=== PATIENT | female | born 1950 | race Asian ===

== ENCOUNTER 2018-08-26 19:47 | Emergency (ER) | payer MEDICARE, SELFPAY ==
[2018-08-26 19:59] VITALS: BP 136/77; PULSE 83; RESP 15; TEMP 36.4; O2SAT 100; BMI 23.2
--- NOTE | 2018-08-26 20:10 | ED.GENADULT ---
HPI - General Adult General Chief complaint: Skin/Abscess/Foreign Body Stated complaint: SWALLOWED CROWN AND POST Time Seen by Provider: 08/26/18 20:09 Source: patient Mode of arrival: ambulatory Limitations: no limitations History of Present Illness HPI narrative: 68-year-old female here for evaluation because she states that while she was eating she swallowed a temporary crown and post from her right lower jaw. She has no problems breathing. No vomiting. Does feel like something is stuck in her throat. Is tolerating her secretions. Related Data Allergies Allergy/AdvReac Type Severity Reaction Status Date / Time fluticasone AdvReac Verified 08/26/18 19:59 [From Advair Diskus] salmeterol AdvReac Verified 08/26/18 19:59 [From Advair Diskus] Review of Systems ENT Ears, Nose, Mouth, and Throat: Denies bleeding gums, Denies change in voice, Denies dental pain, Denies dry mouth and Reports sore throat Cardiovascular Denies dyspnea Respiratory Denies dyspnea Gastrointestinal Gastrointestinal: Denies abdominal pain PFSH Medical History Healthy adult (Acute) Surgical History History of third molar tooth extraction Status post surgery (03/17/14) Social History Smoking Status: Never smoker Exam Initial Vital Signs Initial Vital Signs: Vital Signs Temperature 97.6 F 08/26/18 19:59 Pulse Rate 83 08/26/18 19:59 Respiratory Rate 15 08/26/18 19:59 Blood Pressure 136/77 08/26/18 19:59 Pulse Oximetry 100 08/26/18 19:59 Const General: cooperative, healthy appearing, comfortable, well developed, well groomed and No acute distress Orientation: alert, awake and oriented x3 HENMT Head: normal to inspection and normocephalic Nose: external nose normal Mouth: oral mucosae normal Throat: posterior oropharynx normal Resp Effort & Inspection: normal respiratory effort, able to speak in complete sentences, no audible wheezes, no cough, not labored, no pursed lip breathing and not tachypneic Auscultation: clear to auscultation bilaterally Skin Lesions: no lesions Rashes: no rashes Neuro General: alert, awake and oriented x3 Extrem General: normal to inspection and capillary refill normal Psych Appearance: grossly normal and well kempt Course Orders Ordered: ED Orders 08/26/18 20:10 XR chest 1V Stat 08/26/18 20:19 XR abdomen 1V Stat XR soft tissue neck Stat Vital Signs - 8 hr 08/26/18 19:59 Temperature 97.6 F Pulse Rate 83 Respiratory Rate 15 Blood Pressure 136/77 Pulse Oximetry 100 Medical Decision Making Imaging Data Chest x-ray: Radiologist's impression: [address] [address] XRay Report Signed Patient: Kandice Judge LMR#: [id number] : 9Acct:[id number] Age/Sex: 68 / FDate of Service: 08/26/18 Loc: ED Accession Number: [id number] Procedure: XR chest 1V Ordering Provider: Benjamin Ho D.O. PROCEDURE: XR CHEST 1V INDICATIONS: Ingested foreign body TECHNIQUE: One view of the chest was acquired. COMPARISON: None. FINDINGS: Surgical changes and devices: None. Lungs and pleura: No pleural effusions or pneumothorax. Lungs are clear. Mediastinum: Mediastinal contours appear normal. Heart size is normal. Bones and chest wall: No suspicious bony lesions. Overlying soft tissues appear unremarkable. IMPRESSION: No acute process. Dictated by: Flynn Wray M.D. on 08/26/2018 at 20:32 Approved by: Flynn Wray M.D. on 08/26/2018 at 20:32 Abdominal x-ray: Radiologist's impression: [address] [address] XRay Report Signed Patient: Kandice Judge LMR#: [id number] : 9Acct:[id number] Age/Sex: 68 / FDate of Service: 08/26/18 Loc: ED Accession Number: [id number] Procedure: XR abdomen 1V Ordering Provider: Benjamin Ho D.O. PROCEDURE: XR ABDOMEN 1V INDICATIONS: Ingested foreign body TECHNIQUE: One view of the abdomen acquired. COMPARISON: [facility], CT, ABDOMEN/PELVIS WITH CONTRAST, 01/02/2015, 9:20. FINDINGS: Surgical changes and devices: A 9 mm diameter radiodensity projects over the left L4 vertebral body, compatible with an orally ingested dental amalgam. Bowel: Bowel gas pattern is normal. Soft tissues: No suspicious abdominal calcifications. Visualized solid organ contours appear normal in size. Bones: No suspicious bony lesions. IMPRESSION: Orally ingested object projecting over the lower abdomen as described above. No evidence of bowel obstruction. Dictated by: Flynn Wray M.D. on 08/26/2018 at 20:37 Approved by: Flynn Wray M.D. on 08/26/2018 at 20:38 X-ray soft tissue neck: Radiologist's impression: PROCEDURE: XR SOFT TISSUE NECK INDICATIONS: Ingested foreign body TECHNIQUE: 2 views of the neck were acquired. COMPARISON: None. FINDINGS: Airway: The airway appears patent. Soft tissues: Prevertebral soft tissues are normal in thickness. The epiglottis and aryepiglottic folds appear normal. No soft tissue gas. Bones: No suspicious bony lesions. Visualized cervical spine is normally aligned. IMPRESSION: No radiopaque foreign body. Dictated by: Flynn Wray M.D. on 08/26/2018 at 20:38 Approved by: Flynn Wray M.D. on 08/26/2018 at 20:38 MDM Narrative Medical decision making narrative: Patient not in respiratory distress. X-rays showed appears to be the tooth in the abdomen. Low suspicion for aspiration. Discussed this with the patient. She was given return precautions. She expressed understanding and agreement plan. Discharge Plan Departure Patient Disposition: Home Clinical Impression: Foreign body ingestion Discharge Date/Time: 08/26/18 20:58 Interventions: ED Discharge Assessment Last Done: 08/26/18 20:57 Instructions: DI for Foreign Body, Swallowed-Adult Activity Restrictions/Additional Instructions: Call your primary care doctor for a follow-up to discuss further imaging if indicated. The tube should progress through your intestines without any problems. Return to the emergency department with any fevers, abdominal pain, problems breathing, or any other concerning symptoms.
--- NOTE | 2018-08-26 20:19 | DI.RAD.S_ITS ---
PROCEDURE: XR SOFT TISSUE NECK INDICATIONS: Ingested foreign body TECHNIQUE: 2 views of the neck were acquired. COMPARISON: None. FINDINGS: Airway: The airway appears patent. Soft tissues: Prevertebral soft tissues are normal in thickness. The epiglottis and aryepiglottic folds appear normal. No soft tissue gas. Bones: No suspicious bony lesions. Visualized cervical spine is normally aligned. IMPRESSION: No radiopaque foreign body. Dictated by: Flynn Wray M.D. on 08/26/2018 at 20:38 Approved by: Flynn Wray M.D. on 08/26/2018 at 20:38
--- NOTE | 2018-08-26 20:19 | DI.RAD.S_ITS ---
PROCEDURE: XR ABDOMEN 1V INDICATIONS: Ingested foreign body TECHNIQUE: One view of the abdomen acquired. COMPARISON: [facility], CT, ABDOMEN/PELVIS WITH CONTRAST, 01/02/2015, 9:20. FINDINGS: Surgical changes and devices: A 9 mm diameter radiodensity projects over the left L4 vertebral body, compatible with an orally ingested dental amalgam. Bowel: Bowel gas pattern is normal. Soft tissues: No suspicious abdominal calcifications. Visualized solid organ contours appear normal in size. Bones: No suspicious bony lesions. IMPRESSION: Orally ingested object projecting over the lower abdomen as described above. No evidence of bowel obstruction. Dictated by: Flynn Wray M.D. on 08/26/2018 at 20:37 Approved by: Flynn Wray M.D. on 08/26/2018 at 20:38
== END 2018-08-26 20:58 | disposition home or self-care (01) ==
PROVIDERS: Emergency Provider Emergency Medicine; Family Provider Internal Medicine; PCP Internal Medicine
DX: T18.9XXA Foreign body of alimentary tract, part unspecified, initial encounter (principal)
CPT/HCPCS: 70360; 71045; 74018; 99282; 99283

== ENCOUNTER → 2018-09-10 12:56 | Outpatient (CLI) | payer MEDICARE, SELFPAY ==
[2018-09-10 13:41] LABS: BUN Creatinine Ratio 26.7 (6-22); Blood Urea Nitrogen 16 mg/dL (7-17); Estimated Glomerular Filt Rate > 60.0 mL/min (>60)
== END ==
PROVIDERS: PCP Internal Medicine; Visit Provider Internal Medicine
DX: R10.12 Left upper quadrant pain (principal)
CPT/HCPCS: 36415; 82565; 84520

== ENCOUNTER → 2018-09-15 08:44 | Outpatient (CLI) | payer MEDICARE, SELFPAY ==
--- NOTE | 2018-09-15 | DI.CT.S_ITS ---
PROCEDURE: CT ABDOMEN PELVIS W CON INDICATIONS: LEFT UPPER QUADRANT PAIN TECHNIQUE: After the administration of oral and intravenous contrast, 5 mm thick sections acquired from the diaphragms to the symphysis. 5 mm thick coronal and sagittal reformats were performed. For radiation dose reduction, the following was used: automated exposure control, adjustment of mA and/or kV according to patient size. COMPARISON: [facility], CT, ABDOMEN/PELVIS WITH CONTRAST, 01/02/2015, 9:20. FINDINGS: Image quality: Excellent. ABDOMEN: Lung bases: Lung bases are clear. Heart size is normal. Solid organs: Liver is normal in size and enhancement. Multiple low-density cystic lesions are present throughout the liver overall similar in size and appearance to the study dated 01/02/15 suggesting the presence of multiple hepatic cysts. Subcentimeter calcified stones are present within the gallbladder fundus. No gallbladder wall thickening or pericholecystic fluid. Biliary system is non-dilated. Pancreas enhances normally. Spleen is normal in size and enhancement. No adrenal nodules. Kidneys are normal in size and enhancement, without hydronephrosis. There is a small upper pole left renal cyst. Peritoneum and bowel: Stomach, small bowel, and colon loops are normal in caliber and wall thickness. The appendix is likely visualized and appears thin-walled. No free fluid or air. Nodes and vessels: No retroperitoneal or mesenteric adenopathy. Aorta and inferior vena cava are normal in caliber. Scattered atheromatous calcifications are present throughout the abdominal aorta. Miscellaneous: No ventral hernias. PELVIS: Genitourinary: Bladder wall thickness is normal. Miscellaneous: No inguinal hernias or adenopathy. Bones: No suspicious bony lesions. No vertebral body compression fractures. IMPRESSION: 1. No acute intra-abdominal findings. 2. No findings to explain left upper quadrant pain. Dictated by: Ariella Koroma M.D. on 09/15/2018 at 12:09 Approved by: Ariella Koroma M.D. on 09/15/2018 at 12:14
== END ==
PROVIDERS: Family Provider Internal Medicine; PCP Internal Medicine; Visit Provider Physician Assistant
DX: R10.12 Left upper quadrant pain (principal); N28.1 Cyst of kidney, acquired; I70.0 Atherosclerosis of aorta
CPT/HCPCS: 74177; Q9967

== ENCOUNTER → 2019-02-10 09:05 | Outpatient (CLI) | payer MEDICARE, SELFPAY ==
--- NOTE | 2019-02-10 | DI.MG.S_ITS ---
BILATERAL DIGITAL SCREENING MAMMOGRAM 3D/2D WITH CAD: 02/10/2019 CLINICAL: Routine screening. Family history of breast cancer. Comparison is made to exams dated: 02/03/2018 mammogram, 01/30/2017 mammogram, and 01/14/2016 mammogram - [facility]. The tissue of both breasts is heterogeneously dense. This may lower the sensitivity of mammography. Current study was also evaluated with a Computer Aided Detection (CAD) system. No significant masses, calcifications, or other findings are seen in either breast. There has been no significant interval change. IMPRESSION: NEGATIVE There is no mammographic evidence of malignancy. A 1 year screening mammogram is recommended. This exam was interpreted at Station ID: [id number]. NOTE: For mammograms, a report in lay terms will be sent to the patient. Approximately 15% of breast malignancies will not be visualized mammographically. In the management of a palpable breast mass, a negative mammogram must not discourage biopsy of a clinically suspicious lesion. Electronically Signed By: Lucas abbott/urmila:02/10/2019 13:10:56 letter sent: Normal Exam ACR BI-RADS Category 1: Negative [id number]
== END ==
PROVIDERS: Family Provider Internal Medicine; PCP Internal Medicine; Visit Provider Internal Medicine
DX: Z12.31 Encounter for screening mammogram for malignant neoplasm of breast (principal); Z80.3 Family history of malignant neoplasm of breast
CPT/HCPCS: 77063; 77067

== ENCOUNTER → 2019-03-31 09:49 | Outpatient (CLI) | payer MEDICARE, SELFPAY | PROVIDERS: PCP Internal Medicine; Visit Provider Internal Medicine | DX: M85.852 Other specified disorders of bone density and structure, left thigh (principal); Z78.0 Asymptomatic menopausal state | CPT/HCPCS: 77080 ==

== ENCOUNTER → 2020-05-03 11:08 | Outpatient (CLI) | payer MEDICARE, SELFPAY ==
[2020-05-03 11:47] LABS: Add Manual Diff / Slide Review NO; Basophils Absolute Auto 100 /uL (0-100); Eosinophils Absolute Auto 100 /uL (0-450); Hemoglobin 13.4 g/dL (12.0-16.0); Lymphocytes Absolute Auto 2000 /uL (1100-4500); Lymphocytes Percent Auto 39.9 % (25-40); Mean Corpuscular HGB Conc 33.5 % (30-36); Mean Corpuscular Hemoglobin 31.7 PG (26-34); Mean Corpuscular Volume 94.6 fL (80-100); Monocytes Absolute Auto 300 /uL (0-900); Monocytes Percent Auto 5.4 % (3-14); Neutrophils Absolute Auto 2500 /uL (1500-7000); Neutrophils Percent Auto 50.7 % (50-75); Platelet Count 164 X10^3/uL (150-400); Red Blood Cell Count 4.23 X10^6/uL (4.0-5.2); Red Cell Distribution Width 13.5 % (11.6-14.8)
[2020-05-03 12:27] LABS: Alanine Aminotransferase 45 IU/L (<35); Albumin 4.6 g/dL (3.5-5.0); Albumin Globulin Ratio 1.4 (1.0-2.8); Alkaline Phosphatase 89 U/L (38-126); Aspartate Aminotransferase 38 IU/L (14-36); BUN Creatinine Ratio 21.7 (6-22); Bilirubin Total 0.9 mg/dL (0.2-1.3); Blood Urea Nitrogen 13 mg/dL (7-17); Calcium 10.1 mg/dL (8.4-10.2); Carbon Dioxide 29 mmol/L (22-32); Chloride 108 mmol/L (98-107); Cholesterol 126 mg/dL (140-199); Estimated Glomerular Filt Rate > 60.0 mL/min (>60); Globulin 3.2 g/dL (1.7-4.1); Glucose 107 mg/dL (80-110); HDL Cholesterol 44 mg/dL (40-60); HEMOLYSIS < 15 (0-50); LDL Cholesterol Calculated 51 mg/dL (<100); Potassium 3.8 mmol/L (3.4-5.1); Sodium 142 mmol/L (137-145); Total Protein 7.8 g/dL (6.3-8.2); Triglycerides 157 mg/dL (35-150)
== END ==
PROVIDERS: PCP Internal Medicine; Referring Provider Internal Medicine; Visit Provider Internal Medicine
DX: M48.02 Spinal stenosis, cervical region (principal); I10 Essential (primary) hypertension; M81.0 Age-related osteoporosis without current pathological fracture; E78.2 Mixed hyperlipidemia
CPT/HCPCS: 36415; 80053; 80061; 85025

== ENCOUNTER → 2020-05-11 12:35 | Outpatient (CLI) | payer MEDICARE, SELFPAY ==
--- NOTE | 2020-05-11 12:38 | DI.MG.S_ITS ---
BILATERAL DIGITAL SCREENING MAMMOGRAM 3D/2D WITH CAD: 05/11/2020 CLINICAL: Routine screening. Comparison is made to exams dated: 02/10/2019 mammogram, 02/03/2018 mammogram, and 01/30/2017 mammogram - [facility]. The tissue of both breasts is heterogeneously dense. This may lower the sensitivity of mammography. Current study was also evaluated with a Computer Aided Detection (CAD) system. No significant masses, calcifications, or other findings are seen in either breast. There has been no significant interval change. IMPRESSION: NEGATIVE There is no mammographic evidence of malignancy. A 1 year screening mammogram is recommended. This exam was interpreted at Station ID: [id number]. NOTE: For mammograms, a report in lay terms will be sent to the patient. Approximately 15% of breast malignancies will not be visualized mammographically. In the management of a palpable breast mass, a negative mammogram must not discourage biopsy of a clinically suspicious lesion. Electronically Signed By: Nba bustillo/urmila:05/11/2020 13:33:21 letter sent: Normal Exam ACR BI-RADS Category 1: Negative [id number]
--- NOTE | 2020-05-11 12:39 | DI.US.S_ITS ---
PROCEDURE: US ABDOMEN LIMITED INDICATIONS: SCREENING ABNORMAL LEVELS OF OTHER SERUM ENZYMES TECHNIQUE: Real-time focused scanning was performed of the abdomen, with image documentation. COMPARISON: [facility], CT, CT ABDOMEN PELVIS W CON, 09/15/2018, 9:35. FINDINGS: Liver is diffusely increased in echogenicity. No focal hepatic abnormalities identified. Normal hepatic size. Multiple hepatic cysts redemonstrated as was seen on prior CT scan dated 09/15/2018. Single gallstone present involving the gallbladder neck and there is no gallbladder wall thickening or pericholecystic fluid. No biliary dilatation. Pancreas not visualized. IMPRESSION: 1. Increased hepatic echogenicity noted possibly related to hepatic steatosis but other sources of hepatocellular disease cannot be excluded. Recommend clinical correlation. 2. Cholelithiasis. Dictated by: Conor Mcmullen [facility] Interpreted: Jerad Hendricks MD on 05/11/2020 at 13:13 Approved by: Jerad Hendricks M.D. on 05/11/2020 at 14:46
== END ==
PROVIDERS: PCP Internal Medicine; Referring Provider Internal Medicine; Visit Provider Internal Medicine
DX: Z12.31 Encounter for screening mammogram for malignant neoplasm of breast (principal); R74.8 Abnormal levels of other serum enzymes; K80.20 Calculus of gallbladder without cholecystitis without obstruction
CPT/HCPCS: 76705; 77063; 77067

== ENCOUNTER → 2020-06-13 10:10 | Outpatient (CLI) | payer MEDICARE, SELFPAY ==
[2020-06-13 11:33] LABS: Add Manual Diff / Slide Review NO; Basophils Absolute Auto 0 /uL (0-100); Basophils Percent Auto 0.6 % (0-2); Eosinophils Absolute Auto 200 /uL (0-450); Eosinophils Percent Auto 2.7 % (2-4); Hematocrit 38.1 % (36-46); Hemoglobin 13.2 g/dL (12.0-16.0); Lymphocytes Absolute Auto 1400 /uL (1100-4500); Lymphocytes Percent Auto 24.1 % (25-40); Mean Corpuscular HGB Conc 34.7 % (30-36); Mean Corpuscular Hemoglobin 32.3 PG (26-34); Mean Corpuscular Volume 93.1 fL (80-100); Monocytes Absolute Auto 100 /uL (0-900); Monocytes Percent Auto 1.5 % (3-14); Neutrophils Absolute Auto 4200 /uL (1500-7000); Neutrophils Percent Auto 71.1 % (50-75); Platelet Count 154 X10^3/uL (150-400); Red Blood Cell Count 4.09 X10^6/uL (4.0-5.2); Red Cell Distribution Width 12.9 % (11.6-14.8); White Blood Cell Count 5.9 X10^3/uL (4.5-11.0)
[2020-06-13 11:46] LABS: Alanine Aminotransferase 40 IU/L (<35); Albumin 4.6 g/dL (3.5-5.0); Albumin Globulin Ratio 1.6 (1.0-2.8); Alkaline Phosphatase 84 U/L (38-126); Aspartate Aminotransferase 39 IU/L (14-36); BUN Creatinine Ratio 19.7 (6-22); Bilirubin Total 1.3 mg/dL (0.2-1.3); Bilirubin Unconjugated 1.1 mg/dL (0.0-1.1); Blood Urea Nitrogen 13 mg/dL (7-17); Calcium 9.3 mg/dL (8.4-10.2); Carbon Dioxide 25 mmol/L (22-32); Chloride 108 mmol/L (98-107); Cholesterol 117 mg/dL (140-199); Estimated Glomerular Filt Rate > 60.0 mL/min (>60); Globulin 2.9 g/dL (1.7-4.1); Glucose 100 mg/dL (80-110); HDL Cholesterol 44 mg/dL (40-60); HEMOLYSIS < 15 (0-50); LDL Cholesterol Calculated 54 mg/dL (<100); Potassium 3.8 mmol/L (3.4-5.1); Sodium 141 mmol/L (137-145); Total Protein 7.5 g/dL (6.3-8.2); Triglycerides 95 mg/dL (35-150)
[2020-06-13 12:45] LABS: Hep C Virus Ab w/Reflex Quant NEGATIVE s/c (NEGATIVE)
== END ==
PROVIDERS: PCP Internal Medicine; Referring Provider Internal Medicine; Visit Provider Internal Medicine
DX: M48.02 Spinal stenosis, cervical region (principal); M81.0 Age-related osteoporosis without current pathological fracture; I10 Essential (primary) hypertension; E78.2 Mixed hyperlipidemia; R74.8 Abnormal levels of other serum enzymes
CPT/HCPCS: 36415; 80053; 80061; 80076; 85025; 86803; 87522

== ENCOUNTER → 2020-07-06 09:09 | Outpatient (CLI) | payer MEDICARE, SELFPAY ==
[2020-07-08 18:26] LABS: COVID19 Sendout Not Detected (Not Detect)
== END ==
PROVIDERS: PCP Internal Medicine; Visit Provider Nurse Practitioner
DX: Z11.59 Encounter for screening for other viral diseases (principal)
CPT/HCPCS: 87635

== ENCOUNTER 2020-07-09 06:28 | Day surgery (SDC) | payer MEDICARE, SELFPAY ==
[2020-07-05 08:02] VITALS: BMI 24.8
[2020-07-09] VITALS (13 sets, daily range): BP systolic 102–136; BP diastolic 57–83; PULSE 68–77; RESP 10–20; TEMP 36.6–36.8; O2SAT 96–99; BMI 24.3
--- NOTE | 2020-07-09 | PATH_ITS ---
[facility] Accession Number: [id number] . 01 Material submitted: . PART A: gallbladder - GALLBLADDER PART B: liver - LIVER BIOPSY . 02 Diagnosis: A. Gallbladder, Cholecystectomy: Chronic cholecystitis with cholelithiasis. Adenomyomatous hyperplasia. Negative for dysplasia and malignancy. . B. Liver, Biopsy: 1. Mild macrovesicular steatosis (25%-30%). 2. Mild hepatocytic iron deposition (grade 1 of 4). 3. Biliary hamartoma/von Meyenburg complex; 4 mm. 4. No evidence of acute or chronic hepatitis. 5. No evidence of fibrosis. MRV 07/13/2020 1344 Local . 02 Electronically signed: . Jyoti Sim MD, Pathologist NPI- [id number] . 01 Gross description: . A. Received in formalin, labeled gallbladder and contents, and consists of a 6.0 x 2.8 x 2.0 cm previously disrupted gallbladder with a 0.1 cm in diameter cystic duct. The serosa is talamantes-pink and wrinkled. Opening reveals minimal green viscous bile with multiple black cholelith fragments measuring 0.8 x 0.7 x 0.3 cm in aggregate. The mucosa is talamantes-green and velvety with cholesterolosis. The wall thickness measures 0.1 cm and there is a 0.5 x 0.4 x 0.4 cm cyst within the fundus. [employer] sections are submitted, to include the en face cystic duct margin (blue), body and fundus. B. Received in formalin, labeled liver biopsy, and consists of a 3.0 x 1.3 x 1.0 cm portion of liver with a talamantes-pink smooth capsule. The margin is inked blue and the specimen is sectioned to reveal talamantes-pink glistening cut surfaces. There is a 0.1 x 0.1 x 0.1 cm cyst located 0.6 cm from the margin. The specimen is entirely submitted in cassettes B1-B3. (EA:[id number]) /MRV 07/10/2020 1041 Local . 02 Microscopic: . Part B) The liver biopsy consists of liver parenchyma showing preserved hepatic architecture as confirmed by trichrome stain. The portal tracts show no significant inflammatory infiltrates. There is no central lobular inflammation. Interlobular bile ducts are present in most of the portal tracts examined. The hepatic arteries and portal veins are unremarkable. The hepatic lobules show 25% to 30% of macrosteatosis. There is no evidence of ballooning degenration. No Deborah-Denk bodies are identified. There is no significant intrahepatocytic or intracanalicular cholestasis noted. There is no evidence of hepatocytic necrosis. There is mild hepatocytic iron deposition (grade 1 of 4) in hepatocytes, confirmed by iron stain. A PAS stain with diastase reveals no abnormal globules. The tissue within block B2 shows a focal area of bile ductular cystic changes most consistent with bile duct hamartoma/von Meyenburg complex. There is no proliferation of an abnormal cell population. . 02 Pathologist provided ICD-10: K81.1, K76.0 . 02 CPT . 159593, 309573, 041836, 941471, 040480 Performed at: 01 [facility] [address] [id number] MD Nba Ford MD Phone: [phone] Performed at: [address] [facility] [id number] MD Jyoti Sim MD Phone: [phone]
[2020-07-09] MEDS: LACTATED RINGERS 1,000 ML 42 ML IV ×2 (07:21→09:27)
[2020-07-09] MEDS: ACETAMINOPHEN 325 MG TABLET 975 MG PO (07:21)
[2020-07-09] MEDS: CEFAZOLIN 2 GM/100 ML FROZ.PIGGY IV (07:49)
--- NOTE | 2020-07-09 08:34 | SUR.OPER ---
Supine on padded OR bed, head on pillow, safety belt at thigh. Arms secured on padded arm board <90 degrees abduction. Legs uncrossed. Padded footboard in place. Tape over blanket to secure lower legs.
[2020-07-09] MEDS: BUPIVACAINE 0.5% (PF) VIAL 30 ML INJ (09:03)
--- NOTE | 2020-07-09 10:12 | SUR.PHASEI ---
Oral airway removed without difficulty. RR even and unlabored. VSS.
[2020-07-09] MEDS: ONDANSETRON 4 MG/2 ML INJ IV ×2 (10:14→10:23)
--- NOTE | 2020-07-09 10:24 | SUR.PHASEI ---
Patient continues to c/o nausea but no emesis. Repeat Zofran 4 mg IV given. Patient denies any pain at this time. Resting comfortably, VSS.
[2020-07-09] MEDS: HALOPERIDOL 5 MG/ML VIAL 1 MG IV (10:37)
--- NOTE | 2020-07-09 10:38 | SUR.PHASEII ---
Patient continues to c/o nausea. Haldol given.
--- NOTE | 2020-07-09 10:39 | PM.PREOP ---
Pre-operative Note COVID-19 COVID-19 status: Negative Result date/Date tested (Pos, Neg/Pending): 07/06/20 Interval Note History & Physical reviewed/Exam performed by Physician: Yes Changes to H&P: No
--- NOTE | 2020-07-09 10:42 | P.OP_ITS ---
Operative Date/Time/Diagnoses Date of procedure: 07/09/20 Time of procedure: 10:31 Pre-op diagnosis: Cholelithiasis cholecystitis Post-op diagnosis: same (Patient also had a cystic mass adjacent to the gallbladder and abnormal arterial supply. Please see details below.) Procedure & Clinicians Procedure: Laparoscopic cholecystectomy. Incidental repair of an umbilical hernia. Liver biopsy for indicated reasons at the time of operation. Same procedure as scheduled: Yes Indications: Symptomatic gallbladder disease with gallstones. Surgeon: Jackson Crystal Click Yes if Unassisted: Yes Anesthesia Type: General Operative Notes Findings: Cystic mass adjacent to the gallbladder in the right lobe of the liver. Fairly normal appearing gallbladder with stones. Arcing artery supplying the gallbladder with branches while returning to the liver in the right lobe. Yellow cast to the liver. Biopsy of the liver taken. Closure Type: primary Specimen(s): other (Gallbladder and liver tissue.) Prosthetic devices, grafts, tissues, transplants, or devices: None Estimated Blood Loss (mL): 5 Blood products transfused: none Procedure in detail: The patient was placed supine on the operating room table and underwent general endotracheal anesthesia. The patient was prepped and draped in the usual fashion. Local anesthetic was infiltrated near the umbilicus and curvilinear incision made and carried down through fascia into the peritoneal cavity. There was a small umbilical hernia and the fascial ring was cleared of tissue. Stay sutures of 0 Vicryl were placed in the fascia. A 12 mm port was placed. The abdomen was insufflated. The patient was repositioned. Local anesthetic was infiltrated in 3 areas under the right costal margin and 3D incisions made followed by placing 3 5 mm ports under direct laparoscopic camera vision internally. Immediately adjacent to the gallbladder to its right was a odd lobulated cystic appearing mass. It was clearly separate from the gallbladder and had a somewhat narrowed vase that contain both liver tissue and a wall of the cyst going into the liver. I decided to leave this alone for fear of resecting it and causing a bile leak. The gallbladder was grasped and elevated. Dissection was begun near its end. There was an obvious artery arcing onto the gallbladder but traveling the length of the gallbladder and going back into the liver in the right lobe. I dissected out will was clearly a very small cystic duct. It would not of admitted a cholangiocatheter. Three clips were placed across it was divided leaving 2 in the patient. I then dissec jorge the artery arcade off of the gallbladder and leaving it intact. Clips were placed as necessary for any branch that I was concerned might bleed. The gallbladder is dissected from its bed in the liver and released.. The gallbladder was then dissected from its bed in the liver using cautery. There was spillage of the fluid from the gallbladder but no stones evacuated. Ultimately the gallbladder was detached and removed through the umbilical port. the port sites were all irrigated. The stay sutures at the umbilicus were elevated. A 2 0 PDS suture was placed between them. The Vicryl and PDS sutures were then tied. The skin in all areas was closed with interrupted 4 0 Vicryl subcuticular stitches. Steri-Strips and Mastisol were applied. Band-Aids were placed and the patient was awakened, extubated and taken to the recovery area in good condition. Complications: none Post-operative Condition: stable Disposition: PACU
--- NOTE | 2020-07-09 10:55 | SUR.PHASEII ---
4108 Dr. Crystal spoke with the patient. Julio SINGER, aron resting on patient's chest. Plan: Reevaluate nausea as needed.
[2020-07-09] MEDS: PROCHLORPERAZINE 10 MG/2 ML VIAL IV (11:19)
--- NOTE | 2020-07-09 11:22 | SUR.PHASEII ---
1119 ambulated to the bathroom and voided, stable on feet. Continues to deny pain, nausea continues - medicated.
--- NOTE | 2020-07-09 12:05 | SUR.PHASEII ---
Report from Jackie to myself for lunch relief. Pt stable and wanting to try get dressed, states no longer nauseated. Up earlier to bathroom and voiding well, taking water in sips without problems. All dc instructions given and pt verbalizes understanding. at curbside in private vehicle. iv dcd site clear. Pt wanting to go home and sleep. Dcd in stable condition via wc by Erika with no c/o
== END 2020-07-09 12:05 | disposition home or self-care (01) ==
PROVIDERS: PCP Internal Medicine; Referring Provider Internal Medicine; Visit Provider Specialist
PROC: 0FT44ZZ Resection of Gallbladder, Percutaneous Endoscopic Approach (ICD-10-PCS; CPT 47562; principal; 2020-07-09 07:45)
DX: K80.10 Calculus of gallbladder with chronic cholecystitis without obstruction (principal); K42.9 Umbilical hernia without obstruction or gangrene; I10 Essential (primary) hypertension; E78.5 Hyperlipidemia, unspecified; K21.9 Gastro-esophageal reflux disease without esophagitis; K76.0 Fatty (change of) liver, not elsewhere classified
CPT/HCPCS: 47562; 47001; J0330; J0690; J0780; J1100; J1630; J2405; J2704; J3010

== ENCOUNTER → 2020-08-14 13:34 | Outpatient (CLI) | payer MEDICARE, SELFPAY ==
[2020-08-14 15:54] LABS: Alanine Aminotransferase 37 IU/L (<35); Albumin 4.7 g/dL (3.5-5.0); Albumin Globulin Ratio 1.5 (1.0-2.8); Alkaline Phosphatase 93 U/L (38-126); Aspartate Aminotransferase 37 IU/L (14-36); Bilirubin Total 0.9 mg/dL (0.2-1.3); Blood Urea Nitrogen 9 mg/dL (7-17); Calcium 10.3 mg/dL (8.4-10.2); Carbon Dioxide 35 mmol/L (22-32); Chloride 102 mmol/L (98-107); Estimated Glomerular Filt Rate > 60.0 mL/min (>60); Globulin 3.2 g/dL (1.7-4.1); Glucose 95 mg/dL (80-110); HEMOLYSIS < 15 (0-50); Potassium 3.3 mmol/L (3.4-5.1); Sodium 142 mmol/L (137-145); Total Protein 7.9 g/dL (6.3-8.2)
[2020-08-14 16:05] LABS: Add Manual Diff / Slide Review NO; Basophils Absolute Auto 0 /uL (0-100); Basophils Percent Auto 0.6 % (0-2); Eosinophils Absolute Auto 200 /uL (0-450); Hematocrit 40.3 % (36-46); Hemoglobin 13.5 g/dL (12.0-16.0); Lymphocytes Absolute Auto 2800 /uL (1100-4500); Lymphocytes Percent Auto 47.5 % (25-40); Mean Corpuscular HGB Conc 33.5 % (30-36); Mean Corpuscular Hemoglobin 31.2 PG (26-34); Mean Corpuscular Volume 93.1 fL (80-100); Monocytes Absolute Auto 400 /uL (0-900); Monocytes Percent Auto 6.6 % (3-14); Neutrophils Absolute Auto 2500 /uL (1500-7000); Neutrophils Percent Auto 41.3 % (50-75); Platelet Count 176 X10^3/uL (150-400); Red Blood Cell Count 4.33 X10^6/uL (4.0-5.2); Red Cell Distribution Width 12.9 % (11.6-14.8); White Blood Cell Count 5.9 X10^3/uL (4.5-11.0)
== END ==
PROVIDERS: PCP Internal Medicine; Referring Provider Specialist; Visit Provider Specialist
DX: K80.10 Calculus of gallbladder with chronic cholecystitis without obstruction (principal); R10.13 Epigastric pain
CPT/HCPCS: 36415; 80053; 85025

== ENCOUNTER → 2020-10-16 08:47 | Outpatient (CLI) | payer MEDICARE, SELFPAY ==
[2020-10-16 10:33] LABS: BUN Creatinine Ratio 24.1 (6-22); Blood Urea Nitrogen 14 mg/dL (7-17); Estimated Glomerular Filt Rate > 60.0 mL/min (>60)
== END ==
PROVIDERS: PCP Internal Medicine; Referring Provider Specialist; Visit Provider Specialist
DX: K76.89 Other specified diseases of liver (principal)
CPT/HCPCS: 36415; 82565; 84520

== ENCOUNTER → 2020-10-17 10:21 | Outpatient (CLI) | payer MEDICARE, SELFPAY ==
--- NOTE | 2020-10-17 10:22 | DI.CT.S_ITS ---
PROCEDURE: CT ABDOMEN W CON INDICATIONS: f/ cystic mass seen near gallbladder at time of lap choly TECHNIQUE: After the administration of oral and intravenous contrast, 5 mm thick sections acquired from the diaphragms to the iliac crests. 5 mm thick coronal and sagittal reformats were acquired. For radiation dose reduction, the following was used: automated exposure control, adjustment of mA and/or kV according to patient size. COMPARISON: [facility], CT, CT ABDOMEN PELVIS W CON, 09/15/2018, 9:35. FINDINGS: Image quality: Excellent. Lung bases: Lung bases are clear. Heart size is normal. Solid organs: Liver is normal in size and enhancement. Multiple hypodense liver lesions were previously present, and are consistent with benign cysts and possibly smaller hemangiomata. Gallbladder is surgically absent. Biliary system is non dilated. Pancreas enhances normally. Spleen is normal in size and enhancement. No adrenal nodules. Kidneys are normal in size, without hydronephrosis. Peritoneum and bowel: There is thickening and enhancement of the distal ascending colon near the hepatic flexure, with central luminal low-density suggesting central necrosis within the lumen, suspicious for a possible colonic carcinoma. Alternatively, this may simply represent low-density bowel contents. The distal ascending colon lies medial to the proximal transverse colon. Nodes and vessels: No retroperitoneal or mesenteric adenopathy by size criteria. Aorta and inferior vena cava are normal in size. Bones: No suspicious bony lesions. No vertebral body compression fractures. Miscellaneous: No ventral hernias. IMPRESSION: Findings are suspicious for a possible adenocarcinoma of the distal ascending colon near the hepatic flexure. Recommend direct visualization with colonoscopy. 2. No evidence of metastatic disease in the abdomen. Comment: Findings were discussed with Daisha, the nurse for Dr. Crystal, at the time of study dictation on 10/17/2020 at 1200 hours. Dictated by: Justo Paz M.D. on 10/17/2020 at 11:49 Approved by: Justo Paz M.D. on 10/17/2020 at 12:00
[2020-10-17 12:21] LABS: Alanine Aminotransferase 35 IU/L (<35)
[2020-10-17 15:59] LABS: Hepatitis B Surface Antigen NEGATIVE s/c (NEGATIVE)
[2020-10-17 16:15] LABS: HIV 1 & 2 Ab/Ag 4th Gen Combo NEGATIVE (NEGATIVE); Hep C Virus Ab w/Reflex Quant NEGATIVE s/c (NEGATIVE)
[2020-10-18 08:09] LABS: Hepatitis B Surf Ab Qualitativ Non Reactive (.)
== END ==
PROVIDERS: PCP Internal Medicine; Referring Provider Specialist; Visit Provider Specialist
DX: K76.89 Other specified diseases of liver (principal); Z90.49 Acquired absence of other specified parts of digestive tract
CPT/HCPCS: 74160

== ENCOUNTER → 2020-10-24 15:17 | Outpatient (CLI) | payer MEDICARE, SELFPAY ==
[2020-10-24 15:42] LABS: COVID19 -Nasal RAPID Negative (Negative)
== END ==
PROVIDERS: PCP Internal Medicine; Visit Provider Specialist
DX: Z20.822 Contact with and (suspected) exposure to COVID-19 (principal); Z01.812 Encounter for preprocedural laboratory examination
CPT/HCPCS: 87635; C9803

== ENCOUNTER 2020-10-25 09:32 | Day surgery (SDC) | payer MEDICARE, SELFPAY ==
[2020-10-25] VITALS (7 sets, daily range): BP systolic 109–140; BP diastolic 58–75; PULSE 82–102; RESP 12–16; TEMP 36.5–36.7; O2SAT 98–100; BMI 23.6
--- NOTE | 2020-10-25 | PATH_ITS ---
[facility] Accession Number: [id number] . 01 Material submitted: . colon - POLYP AT 30 CM . 02 Diagnosis: Colon Polyp at 30 cm, Biopsy: Tubular adenoma. MRV 10/30/2020 1047 Local . 02 Electronically signed: . Khari Huang MD, PhD, Pathologist NPI- [id number] . 01 Gross description: . POLYP AT 30 CM: Received in formalin are 3 fragment(s) of talamantes, soft tissue measuring 0.1 x 0.1 x 0.1 cm to 0.3 x 0.2 x 0.2 cm submitted entirely in 12 cassette(s) /KEE 10/26/20202019 Local . 02 Pathologist provided ICD-10: D12.6 . 02 CPT . 295024 Performed at: 01 [facility] [address] [place] [address], [place], [place] [id number] MD Nba Ford MD Phone: [phone] Performed at: [facility] [address] [place], [place] [id number] MD Jyoti Sim MD Phone: [phone]
[2020-10-25] MEDS: LACTATED RINGERS 1,000 ML 200 ML IV (10:03)
--- NOTE | 2020-10-25 11:19 | PM.HP.1 ---
History of Present Illness History of Present Illness Date Patient Seen: 10/25/20 Time Patient Seen: 11:19 Chief complaint: SDC Narrative: The patient is a woman here for a colonoscopy. She had a CT scan that showed abnormality in the ascending colon near the flexure. Her last colonoscopy was almost 5 years ago. Patient History Medical History Appendicitis with nonoperative management (2014) Fatty liver Gallstones Healthy adult History of hysteroscopy (2013) HLD (hyperlipidemia) HTN (hypertension) Surgical History History of third molar tooth extraction S/P cervical spinal fusion Status post surgery (03/17/14) Family & Social History Social History: household members spouse Tobacco & Substance use: Smoking Status Never smoker alcohol intake never alcohol intake frequency 0-2 drinks per day Substance Use Type does not use Meds Home Medications and Allergies Home Medications Medication Instructions Recorded Confirmed Type aspirin 81 mg tablet,delayed 81 mg PO DAILY 07/04/20 10/25/20 History release atorvastatin 10 mg tablet 10 mg PO DAILY 07/04/20 10/25/20 History cholecalciferol (vitamin D3) 10 10 mcg PO DAILY 07/04/20 10/25/20 History mcg (400 unit) capsule diltiazem HCl 240 mg 240 mg PO DAILY 07/04/20 10/25/20 History capsule,extended release 24 hr hydrochlorothiazide 12.5 mg tablet 12.5 mg PO DAILY 07/04/20 10/25/20 History multivitamin 1 cap PO DAILY 07/04/20 10/25/20 History cholestyramine (with sugar) 4 gram See Rx Instructions PO DAILY #10 08/14/20 10/25/20 Rx powder for susp in a packet packet omeprazole 20 mg capsule,delayed 20 mg PO DAILY #30 cap 08/14/20 10/25/20 Rx release sodium,potassium,mag sulfates 17.5 177 ml PO DAILY #354 ml 10/18/20 10/25/20 Rx gram-3.13 gram-1.6 gram oral soln Allergies Allergy/AdvReac Type Severity Reaction Status Date / Time No Known Drug Allergies Allergy Verified 10/25/20 10:07 Review of Systems Review of Systems ROS: Yes All systems reviewed with the patient and are negative except as otherwise documented Exam Vital Signs (past 8 hours): - 10/25/20 09:59 Temperature 98.1 F Pulse Rate 86 Respiratory Rate 12 Blood Pressure 123/75 Pulse Oximetry 100 Oxygen Delivery Method Room Air Narrative Exam Narrative: Pleasant cooperative patient no apparent distress. Lungs are clear to auscultation. No rales or rhonchi. Heart regular rate and rhythm no murmur gallop. Abdomen is soft nontender without mass. No obvious hernias. Patient is alert and oriented x3.
--- NOTE | 2020-10-25 11:30 | PM.PREOP ---
Pre-operative Note COVID-19 COVID-19 status: Negative Result date/Date tested (Pos, Neg/Pending): 10/25/20 Interval Note History & Physical reviewed/Exam performed by Physician: Yes Changes to H&P: No ASA Class (for procedural sedation): II
--- NOTE | 2020-10-25 12:05 | P.OP.ENDO_ITS ---
Operative Date/Time/Diagnoses Date of procedure: 10/25/20 Time of procedure: 12:05 Pre-op diagnosis: Abnormal CT scan suggesting a colon cancer at the ascending colon near the hepatic flexure. Last colonoscopy was a little over 4 years ago. Post-op diagnosis: other (No lesion found in the area of abnormality on CT scan. Patient had a small polyp at 30 cm from the anal verge and had scattered occasional diverticulosis with heaviest concentration in the sigmoid) Procedure & Clinicians Study performed: Colonoscopy with cold biopsy and cauterization of a bleeding vessel. Same procedure as scheduled: Yes Indications: Abnormal CT scan done for other reasons. Surgeon: Jackson Crystal Procedure Notes SCOAP/Timeout: Perform Procedure in detail: The patient was placed in the left lateral decubitus position and underwent IV sedation directed by the surgeon consisting of fentanyl and Versed. Digital exam was remarkable for an increased sphincter tone. There are no palpable masses.. The scope was inserted and advanced through the rectum into the sigmoid, descending, transverse, and ascending colon. Patient was noted to had scattered diverticulosis. Heaviest concentration was in the sigmoid.. The cecum was reached identified by the ileocecal valve and the appendiceal opening. The ileocecal valve was successfully cannulated. The terminal ileum was normal in appearance. The scope was gradually brought out. There was no lesions seen going in or out in the area of concern based on the CT scan. This was carefully evaluated. There was a very small polyp noted at 30 cm from the anal verge. I biopsied this and it bled unusually therefore I cauterized the base with the tip of the hot snare. One additional tiny Polyp was found in the rectum and I chose to cauterize this tiny lesion. The scope ultimately was retroflexed in the rectum. The appearance was remarkable for some minor scarring. No active disease seen.. The scope was removed and the patient tolerated the procedure well. The prep wa s very good. Scope withdrawal time: 13 minutes(18 total) Sedation minutes: 32 Findings: diverticulosis and polyp Specimen(s): other (Polyp) Complications: none Post-procedure Recommendations: Colonscopy in 5 years Follow up: as needed Disposition: PACU
[2020-10-25] MEDS: fentaNYL 250 MCG/5 ML INJ IV (12:07)
[2020-10-25] MEDS: MIDAZOLAM 5 MG/5 ML VIAL IV (12:07)
== END 2020-10-25 13:02 | disposition home or self-care (01) ==
PROVIDERS: PCP Internal Medicine; Referring Provider Specialist; Visit Provider Specialist
PROC: 0DJD8ZZ Inspection of Lower Intestinal Tract, Via Natural or Artificial Opening Endoscopic (ICD-10-PCS; CPT 45378; principal; 2020-10-25 10:45)
DX: K57.30 Diverticulosis of large intestine without perforation or abscess without bleeding (principal); E78.5 Hyperlipidemia, unspecified; I10 Essential (primary) hypertension; D12.6 Benign neoplasm of colon, unspecified
CPT/HCPCS: 45380; 99152; 99153; J2250; J3010

== ENCOUNTER → 2020-12-13 09:18 | Outpatient (CLI) | payer MEDICARE, SELFPAY ==
[2020-12-13 12:01] LABS: Alanine Aminotransferase 28 IU/L (<35); Albumin 4.6 g/dL (3.5-5.0); Albumin Globulin Ratio 1.5 (1.0-2.8); Alkaline Phosphatase 80 U/L (38-126); Aspartate Aminotransferase 30 IU/L (14-36); Bilirubin Total 0.9 mg/dL (0.2-1.3); HEMOLYSIS < 15 (0-50); Total Protein 7.6 g/dL (6.3-8.2)
== END ==
PROVIDERS: PCP Internal Medicine; Referring Provider Internal Medicine; Visit Provider Internal Medicine
DX: R74.8 Abnormal levels of other serum enzymes (principal)
CPT/HCPCS: 36415; 80076

== ENCOUNTER → 2020-12-20 13:56 | Outpatient (CLI) | payer MEDICARE, SELFPAY ==
[2020-12-20] MEDS: COVID-19 VACC, Ad26(JANSSEN)/PF 0.5 ML IM (14:22)
== END ==
PROVIDERS: PCP Internal Medicine; Visit Provider Internal Medicine
DX: Z23 Encounter for immunization (principal)
CPT/HCPCS: 0031A; 91303

== ENCOUNTER → 2021-06-10 09:54 | Outpatient (CLI) | payer MEDICARE, SELFPAY ==
--- NOTE | 2021-06-10 | DI.MG.S_ITS ---
BILATERAL DIGITAL SCREENING MAMMOGRAM 3D/2D WITH CAD: 06/10/2021 CLINICAL: Routine screening. Family history of breast cancer. Comparison is made to exams dated: 05/11/2020 mammogram, 02/10/2019 mammogram, and 02/03/2018 mammogram - [facility]. The tissue of both breasts is heterogeneously dense. This may lower the sensitivity of mammography. Current study was also evaluated with a Computer Aided Detection (CAD) system. No significant masses, calcifications, or other findings are seen in either breast. There has been no significant interval change. IMPRESSION: NEGATIVE There is no mammographic evidence of malignancy. A 1 year screening mammogram is recommended. This exam was interpreted at Station ID: [id number]. NOTE: For mammograms, a report in lay terms will be sent to the patient. Approximately 15% of breast malignancies will not be visualized mammographically. In the management of a palpable breast mass, a negative mammogram must not discourage biopsy of a clinically suspicious lesion. Electronically Signed By: Santos gamboa/urmila:06/10/2021 10:47:47 letter sent: Normal Exam ACR BI-RADS Category 1: Negative 3341F
== END ==
PROVIDERS: PCP Internal Medicine; Referring Provider Internal Medicine; Visit Provider Internal Medicine
DX: Z12.31 Encounter for screening mammogram for malignant neoplasm of breast (principal); Z80.3 Family history of malignant neoplasm of breast
CPT/HCPCS: 77063; 77067

== ENCOUNTER → 2021-08-28 09:06 | Outpatient (CLI) | payer MEDICARE, SELFPAY ==
[2021-08-28 10:15] LABS: Add Manual Diff / Slide Review NO; Basophils Absolute Auto 0 /uL (0-100); Basophils Percent Auto 0.9 % (0-2); Eosinophils Absolute Auto 100 /uL (0-450); Hematocrit 39.4 % (36-46); Hemoglobin 13.4 g/dL (12.0-16.0); Lymphocytes Absolute Auto 2200 /uL (1100-4500); Lymphocytes Percent Auto 44.9 % (25-40); Mean Corpuscular HGB Conc 34.1 % (30-36); Mean Corpuscular Hemoglobin 31.5 PG (26-34); Mean Corpuscular Volume 92.4 fL (80-100); Monocytes Absolute Auto 300 /uL (0-900); Monocytes Percent Auto 6.8 % (3-14); Neutrophils Absolute Auto 2200 /uL (1500-7000); Neutrophils Percent Auto 45.4 % (50-75); Platelet Count 168 X10^3/uL (150-400); Red Blood Cell Count 4.26 X10^6/uL (4.0-5.2); Red Cell Distribution Width 13.2 % (11.6-14.8); White Blood Cell Count 4.9 X10^3/uL (4.5-11.0)
[2021-08-28 10:28] LABS: Alanine Aminotransferase 26 IU/L (<35); Albumin 4.7 g/dL (3.5-5.0); Albumin Globulin Ratio 1.6 (1.0-2.8); Alkaline Phosphatase 82 U/L (38-126); Aspartate Aminotransferase 30 IU/L (14-36); BUN Creatinine Ratio 23.8 (6-22); Bilirubin Total 1.2 mg/dL (0.2-1.3); Blood Urea Nitrogen 15 mg/dL (7-17); Calcium 9.5 mg/dL (8.4-10.2); Carbon Dioxide 27 mmol/L (22-32); Chloride 108 mmol/L (98-107); Cholesterol 129 mg/dL (140-199); Estimated Glomerular Filt Rate > 60.0 mL/min (>60); Globulin 2.9 g/dL (1.7-4.1); Glucose 107 mg/dL (80-110); HDL Cholesterol 51 mg/dL (40-60); HEMOLYSIS < 15 (0-50); LDL Cholesterol Calculated 62 mg/dL (<100); Potassium 3.8 mmol/L (3.4-5.1); Sodium 143 mmol/L (137-145); Total Protein 7.6 g/dL (6.3-8.2); Triglycerides 78 mg/dL (35-150)
== END ==
PROVIDERS: PCP Internal Medicine; Referring Provider Internal Medicine; Visit Provider Internal Medicine
DX: K76.0 Fatty (change of) liver, not elsewhere classified (principal); Z13.220 Encounter for screening for lipoid disorders
CPT/HCPCS: 36415; 80053; 80061; 85025

== ENCOUNTER → 2022-06-19 11:11 | Outpatient (CLI) | payer MEDICARE, SELFPAY ==
--- NOTE | 2022-06-19 11:13 | DI.MG.S_ITS ---
BILATERAL DIGITAL SCREENING MAMMOGRAM 3D/2D WITH CAD: 06/19/2022 CLINICAL: Routine screening. Family history of breast cancer. Comparison is made to exams dated: 06/10/2021 mammogram, 05/11/2020 mammogram, and 02/10/2019 mammogram - [facility]. Both breasts are heterogeneously dense, which may obscure small masses (category c / 51-75% glandular tissue). Current study was also evaluated with a Computer Aided Detection (CAD) system. No significant masses, calcifications, or other findings are seen in either breast. There has been no significant interval change. IMPRESSION: NEGATIVE There is no mammographic evidence of malignancy. A 1 year screening mammogram is recommended. This exam was interpreted at Station ID: [id number]. NOTE: For mammograms, a report in lay terms will be sent to the patient. Approximately 15% of breast malignancies will not be visualized mammographically. In the management of a palpable breast mass, a negative mammogram must not discourage biopsy of a clinically suspicious lesion. Electronically Signed By: Kade Emerson acr/urmila:06/19/2022 12:38:22 letter sent: Normal Exam ACR BI-RADS Category 1: Negative 3341F
== END ==
PROVIDERS: PCP Internal Medicine; Referring Provider Internal Medicine; Visit Provider Internal Medicine
DX: Z12.31 Encounter for screening mammogram for malignant neoplasm of breast (principal); Z80.3 Family history of malignant neoplasm of breast
CPT/HCPCS: 77063; 77067

== ENCOUNTER → 2023-06-22 13:12 | Outpatient (CLI) | payer MEDICARE, SELFPAY ==
--- NOTE | 2023-06-22 | DI.MG.S_ITS ---
BILATERAL DIGITAL SCREENING MAMMOGRAM 3D/2D WITH CAD: 06/22/2023 CLINICAL: Routine screening. Family history of breast cancer. Comparison is made to exams dated: 06/19/2022 mammogram, 06/10/2021 mammogram, and 05/11/2020 mammogram - [facility]. Both breasts are heterogeneously dense, which may obscure small masses (category c / 51-75% glandular tissue). Current study was also evaluated with a Computer Aided Detection (CAD) system. No significant masses, calcifications, or other findings are seen in either breast. There has been no significant interval change. IMPRESSION: NEGATIVE There is no mammographic evidence of malignancy. A 1 year screening mammogram is recommended. Based on the Tyrer Cuzick model (a risk assessment model) the patient's lifetime risk is 17.2% and her 10 year risk is 15.9%. According to the ACR, ACS, and NCCN guidelines, an annual breast MRI exam along with mammogram is recommended if the patient's lifetime risk is 20% or greater. This exam was interpreted at Station ID: [id number]. NOTE: For mammograms, a report in lay terms will be sent to the patient. Approximately 15% of breast malignancies will not be visualized mammographically. In the management of a palpable breast mass, a negative mammogram must not discourage biopsy of a clinically suspicious lesion. Electronically Signed By: Tyler mojica/urmila:06/22/2023 14:13:30 letter sent: Normal Exam ACR BI-RADS Category 1: Negative 3341F
== END ==
PROVIDERS: PCP Physician Assistant; Referring Provider Physician Assistant; Visit Provider Physician Assistant
DX: Z12.31 Encounter for screening mammogram for malignant neoplasm of breast (principal); Z80.3 Family history of malignant neoplasm of breast
CPT/HCPCS: 77063; 77067

== ENCOUNTER → 2024-06-24 10:03 | Outpatient (CLI) | payer MEDICARE, SELFPAY ==
--- NOTE | 2024-06-24 10:05 | DI.MG.S_ITS ---
BILATERAL DIGITAL SCREENING MAMMOGRAM 3D/2D WITH CAD: 06/24/2024 CLINICAL: Routine screening. Family history of breast cancer. Comparison is made to exams dated: 06/22/2023 mammogram, 06/19/2022 mammogram, and 06/10/2021 mammogram - [facility]. The breasts are heterogeneously dense, which may obscure small masses (category c / 51-75% glandular tissue). Current study was also evaluated with a Computer Aided Detection (CAD) system. There is a possible developing high density asymmetry with a microlobulated margin in the left breast posterior depth superior region seen on the mediolateral oblique view only. No other significant masses, calcifications, or other findings are seen in either breast. IMPRESSION: INCOMPLETE: NEED ADDITIONAL IMAGING EVALUATION The possible developing high density asymmetry in the left breast is indeterminate. Additional views with possible ultrasound are recommended. Based on the Tyrer Cuzick model (a risk assessment model) the patient's lifetime risk is 16.2% and her 10 year risk is 16.2%. According to the ACR, ACS, and NCCN guidelines, an annual breast MRI exam along with mammogram is recommended if the patient's lifetime risk is 20% or greater. This exam was interpreted at Station ID: [id number]. NOTE: For mammograms, a report in lay terms will be sent to the patient. Approximately 15% of breast malignancies will not be visualized mammographically. In the management of a palpable breast mass, a negative mammogram must not discourage biopsy of a clinically suspicious lesion. Electronically Signed By: Dariana fermin/urmila:06/27/2024 17:39:04 letter sent: Additional Imaging Needed ACR BI-RADS Category 0: Incomplete: Need Additional Imaging Evaluation 3340F
== END ==
PROVIDERS: PCP Family Medicine; Referring Provider Family Medicine; Visit Provider Family Medicine
DX: Z12.31 Encounter for screening mammogram for malignant neoplasm of breast (principal); Z80.3 Family history of malignant neoplasm of breast; R92.333 Mammographic heterogeneous density, bilateral breasts
CPT/HCPCS: 77063; 77067

== ENCOUNTER → 2024-07-07 09:17 | Outpatient (CLI) | payer MEDICARE, SELFPAY ==
--- NOTE | 2024-07-07 09:19 | DI.MG.S_ITS ---
UNILATERAL LEFT DIGITAL DIAGNOSTIC MAMMOGRAM 3D/2D WITH ADDITIONAL VIEWS: 07/07/2024 CLINICAL: Additional evaluation requested from prior study. Comparison is made to exams dated: 06/24/2024 mammogram, 06/22/2023 mammogram, and 06/19/2022 mammogram - [facility]. The breasts are heterogeneously dense, which may obscure small masses (category c / 51-75% glandular tissue). The finding seen on recent screening mammogram did not persist with additional imaging and is consistent with superimposition of normal breast tissue. No significant masses, calcifications, or other findings are seen in the breast. IMPRESSION: NEGATIVE Superimposition of normal breast tissue. No mammographic evidence of malignancy. A 1 year screening mammogram is recommended. Findings and recommendations were conveyed to the patient during today's evaluation. Based on the Tyrer Cuzick model (a risk assessment model) the patient's lifetime risk is 16.2% and her 10 year risk is 16.2%. According to the ACR, ACS, and NCCN guidelines, an annual breast MRI exam along with mammogram is recommended if the patient's lifetime risk is 20% or greater. This exam was interpreted at Station ID: [id number]. NOTE: For mammograms, a report in lay terms will be sent to the patient. Approximately 15% of breast malignancies will not be visualized mammographically. In the management of a palpable breast mass, a negative mammogram must not discourage biopsy of a clinically suspicious lesion. Electronically Signed By: Homa Hollis M.D., Ph.D. eb/:07/07/2024 09:53:49 letter sent: Normal Exam ACR BI-RADS Category 1: Negative
== END ==
PROVIDERS: PCP Family Medicine; Referring Provider Family Medicine; Visit Provider Family Medicine
DX: R92.8 Other abnormal and inconclusive findings on diagnostic imaging of breast (principal); R92.333 Mammographic heterogeneous density, bilateral breasts
CPT/HCPCS: 77065; G0279

== ENCOUNTER → 2025-07-12 11:15 | Outpatient (CLI) | payer MEDICARE, SELFPAY ==
--- NOTE | 2025-07-12 11:17 | DI.MG.S_ITS ---
MM screening mammo BI: 07/12/2025. BI-RADS: 1 CLINICAL: 75-year old female for bilateral screening mammogram. Tyrer-Cuzick lifetime risk of 2.8%. No personal or first-degree family history of breast cancer. PRIOR EXAMS: 07/07/2024, 06/24/2024, 06/22/2023, 06/19/2022, 06/10/2021, 05/11/2020, 02/10/2019, 02/03/2018, 01/30/2017, 01/14/2016. MAMMOGRAPHY TECHNIQUE: 2D and 3D (tomosynthesis) digital mammographic views obtained, with additional images as needed for full coverage. Current study was also evaluated with a Computer Aided Detection (CAD) system. DENSITY C. The breasts are heterogeneously dense, which may obscure small masses. MAMMOGRAPHY FINDINGS Bilateral: No suspicious mass, asymmetry, microcalcification, or other abnormality seen. IMPRESSION: * No evidence of malignancy. RECOMMENDATIONS Bilateral * Annual screening mammography. OVERALL ASSESSMENT CATEGORY BI-RADS-1: Negative. The [employer] recommends annual screening mammography beginning at age 40 for women with average risk of breast cancer. ELECTRONICALLY SIGNED: Izabel Winston M.D. on 07/12/2025 at 10:26:00 PM PT Interpreting Station ID: [id number]
== END ==
LOC: MAMMO 11:17
PROVIDERS: PCP Family Medicine; Referring Provider Family Medicine; Visit Provider Family Medicine
DX: Z12.31 Encounter for screening mammogram for malignant neoplasm of breast (principal); R92.333 Mammographic heterogeneous density, bilateral breasts
CPT/HCPCS: 77063; 77067